=== PATIENT | male | born 1975 | race Caucasian/White ===

== ENCOUNTER 2017-10-03 00:13 | Emergency (ER) | payer OTHER ==
[~2017-10-03] VITALS: Ht 172.7 cm; Wt 74.8 kg
[~2017-10-03 00:13] MED LIST: ADVIL PO
--- NOTE | 2017-10-03 00:49 | NUR ---
[id number]. PT COMES TO ER FROM HOME VIA PRIVATE VEHICLE. PT PROVIDED WHEELCHAIR IN WAITING AREA UPON ARRIVAL. 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 PT STATES HE WAS WALKING HIS DOG AND FELT SUDDEN PAIN IN HIS LOWER LEFT EXTREMITY BUT MAJORY OF DISCOMFORT SURROUNDS HIS KNEE. PT STATES "IT FEELS LIKE MY KNEE IS ABOUT TO BE CUT OFF." SURGICAL HISTORY REGARDING CHEIF COMPLAINT: ACL SURGERY APPROX 9-10 YEARS AGO. PATIENT STATES HE HAD A REINJURY OF THE AREA WITH "A FEW YEARS" AFTER THE SURGERY. HE IS UNABLE TO PROVIDE AN EXACT TIMELINE AT THIS TIME. PATIENT NOW COMES INTO THE ER SEEKING FURTHER EVALUATION OF HIS KNEE AND LLE PAIN. RESPIRATIONS EVEN + UNLABORED. NO SOB/CONGESTION. NO CARDIOVASCULAR DISTRESS NOTED. NO CHEST PAIN. NO GI/ DISTRESS. NO N/V. PT IN WHEELCHAIR. IN ROOM AT THIS TIME. NO ACUTE DISTRESS NOTED. EDUCATED AREA LOSS PREVENTION MANAGER LIGHT USE. WILL CTM. @0046 ER MD IN ROOM FOR PATIENT EVALUATION.
--- NOTE | 2017-10-03 00:58 | NUR ---
Xray contacted for patient evaluation.
--- NOTE | 2017-10-03 01:13 | NUR ---
Xray at bedside
--- NOTE | 2017-10-03 01:32 | NUR ---
Patient discharged to home in stable conditon. Written and verbal after care instructions given. Patient verbalizes understanding of instructions. Knee immobilizer applied to LLE w/ CMS wnl. pulses present. palpable. no s/s of compartment syndrome noted. VSS at discharge. Crutches provided, gait training completed with return demonstrated provided by pt. Pt ambulated from ER, all belongings with pt. Pt to be driven home by friend in private vehicle.
[2017-10-03 01:34] VITALS: BP 117/82
== END 2017-10-03 01:35 | disposition home or self-care (01) ==
LOC: ER 00:15
DX: M23.92 Unspecified internal derangement of left knee (principal); Z79.899 Other long term (current) drug therapy
CPT/HCPCS: A4663

== ENCOUNTER 2020-03-04 19:50 | Emergency (ER) | payer OTHER ==
[~2020-03-04] VITALS: Ht 172.7 cm; Wt 77.1 kg
--- NOTE | 2020-03-04 20:04 | NUR ---
DR CA INTO EVAL PATIENT.
[2020-03-04] MEDS ORDERED: IV NORMAL SALINE 1000 ML BAG IV ONE (20:15)
--- NOTE | 2020-03-04 22:16 | NUR ---
Patient discharged to home in stable condition. Written and verbal after care instructions given. Patient verbalizes understanding of instructions. Stressed follow up or return to ER for worsening s/s. PATIENT LEFT WITH STABLE GAIT.
[2020-03-04 22:17] VITALS: BP 111/54
--- NOTE | 2020-03-04 22:17 | NUR ---
IV REMOVED, CATHETER INTACT.
== END 2020-03-04 22:24 | disposition home or self-care (01) ==
LOC: ER 19:53
DX: R55 Syncope and collapse (principal); I45.10 Unspecified right bundle-branch block; I95.9 Hypotension, unspecified
CPT/HCPCS: 93005; 96360; 96361; 99284; J3490; A4663